=== PATIENT | male | born 1990 | race Caucasian/White ===

== ENCOUNTER 2017-10-18 23:49 | Emergency (ER) | payer OTHER ==
[~2017-10-18] VITALS: Ht 180.3 cm; Wt 93.4 kg
[2017-10-19 00:12] VITALS: Ht 180.3 cm; Wt 93.4 kg
[2017-10-19 02:45] VITALS: BP 141/92
== END 2017-10-19 02:45 | disposition home or self-care (01) ==
LOC: ED 23:49
DX: H10.211 Acute toxic conjunctivitis, right eye (principal)
CPT/HCPCS: J7040; V2632